=== PATIENT | female | born 1985 | race Caucasian/White ===

== ENCOUNTER 2018-04-01 11:20 | Inpatient (IN) | payer OTHER ==
[~2018-04-01] VITALS: Ht 167 cm; Wt 67.1 kg
[2018-04-01] MEDS ORDERED: OXYTOCIN 30 UNITS/LACT RINGERS 500 ML IV ONE ×2 (11:26→22:54)
[2018-04-01] MEDS ORDERED: RINGERS SOLUTION,LACTATED 1,000 ML IV PRN (11:26)
[2018-04-01] MEDS ORDERED: METOCLOPRAMIDE HCL 5 MG/ML 2 ML VIAL IVP PRN (11:30)
[2018-04-01] MEDS ORDERED: OXYGEN THERAPY IH SCH (11:30)
[2018-04-01] MEDS ORDERED: CITRIC ACID/SODIUM CITRATE 30 ML SOLUTION UDCUP PO PRN (11:30)
[2018-04-01] MEDS ORDERED: METHYLERGONOVINE MALEATE 0.2 MG/ML VIAL IM PRN (11:30)
[2018-04-01] MEDS ORDERED: LIDOCAINE/PF 1% 30 ML VIAL INJ PRN ×2 (11:30→23:00)
[2018-04-01 11:53] VITALS: BP 108/61
[2018-04-01] MEDS ORDERED: PNV1TABL54 PO (11:54)
[2018-04-01 12:58] LABS: BASOPHILS % (AUTO) 0.5 % (0.0-2.0); EOSINOPHILS % (AUTO) 0.7 % (1.0-6.0); HEMATOCRIT 33.1 % (36-46); HEMOGLOBIN 10.9 g/dL (12.0-16.0); MEAN CORPUSCULAR HEMOGLOBIN 26.5 pg (26.0-34.0); MEAN CORPUSCULAR HGB CONC 32.9 G/dL (31.0-37.0); MEAN CORPUSCULAR VOLUME 81 fL (80-100); MONOCYTES # (AUTO) 0.7 K/uL (0.1-1.0); MONOCYTES % (AUTO) 6.3 % (2.0-9.0); NEUTROPHILS # (AUTO) 8.1 K/uL (1.8-7.7); NEUTROPHILS % (AUTO) 74.5 % (40.0-70.0); PLATELET COUNT (AUTO) 180 K/uL (150-450); RED BLOOD CELL COUNT(AUTO) 4.11 MIL/uL (4.00-5.20); RED CELL DISTRIBUTION WIDTH 15.1 % (11.5-14.5)
[2018-04-01] MEDS ORDERED: ROPIVACAINE HCL/PF 0.2% 100 ML ED ONE (13:03)
[2018-04-01] MEDS ORDERED: LIDOCAINE/PF 2% 5 ML VIAL ONE (13:03)
[2018-04-01] MEDS: RINGERS SOLUTION,LACTATED 1,000 ML IV SCH ×2 (13:33→19:26)
[2018-04-01] MEDS ORDERED: OXYTOCIN 30 UNITS/LACT RINGERS 500 ML IV PRN (14:18)
[2018-04-01] MEDS ORDERED: ROPIVACAINE HCL/PF 0.2% 100 ML ED PRN (14:30)
[2018-04-01] MEDS ORDERED: NALBUPHINE HCL 10 MG/ML VIAL IVP PRN (14:30)
[2018-04-01] MEDS ORDERED: DiphenhydrAMINE HCL 50 MG/ML VIAL IVP PRN (14:30)
[2018-04-01] MEDS ORDERED: ONDANSETRON HCL 4 MG/2 ML VIAL IVP PRN (14:30)
[2018-04-01] MEDS ORDERED: AMPICILLIN SODIUM 2 GM/NS 100 ML IV ONE (15:00)
[2018-04-01] MEDS ORDERED: AMPICILLIN SODIUM 1 GM/NS 50 ML IV SCH (19:00)
[2018-04-01] MEDS ORDERED: GLYCERIN/WITCH HAZEL LEAF 40 PADS JAR TP PRN (23:00)
[2018-04-01] MEDS ORDERED: MAGNESIUM HYDROXIDE SUSPENSION 30 ML UDCUP PO PRN (23:00)
[2018-04-01] MEDS ORDERED: BENZOCAINE 20%/MENTHOL 56 GM SPRAY CANISTER TP PRN (23:00)
[2018-04-01] MEDS ORDERED: LANOLIN 7 GM OINTMENT TP PRN (23:00)
[2018-04-01] MEDS ORDERED: OxyCODONE HCL/ACETAMINOPHEN 5-325 MG TABLET PO PRN ×2 (23:00)
[2018-04-02] MEDS: IBUPROFEN 800 MG TABLET PO PRN ×2 (01:05→16:45)
[2018-04-02 06:05] LABS: BASOPHILS % (AUTO) 0.3 % (0.0-2.0); EOSINOPHILS % (AUTO) 0.2 % (1.0-6.0); HEMATOCRIT 29.1 % (36-46); HEMOGLOBIN 9.9 g/dL (12.0-16.0); LYMPHOCYTES # (AUTO) 2.3 K/uL (1.0-4.8); LYMPHOCYTES % (AUTO) 12.3 % (22.0-44.0); MEAN CORPUSCULAR HGB CONC 34.1 G/dL (31.0-37.0); MEAN CORPUSCULAR VOLUME 79 fL (80-100); MONOCYTES % (AUTO) 5.5 % (2.0-9.0); NEUTROPHILS # (AUTO) 15.1 K/uL (1.8-7.7); NEUTROPHILS % (AUTO) 81.7 % (40.0-70.0); PLATELET COUNT (AUTO)-OB 163 K/uL (150-450); RED BLOOD CELL COUNT(AUTO) 3.66 MIL/uL (4.00-5.20); RED CELL DISTRIBUTION WIDTH 15.1 % (11.5-14.5)
[2018-04-02] MEDS ORDERED: IBUP-2071 PO (19:33)
[2018-04-02] MEDS ORDERED: DSS100 PO (19:34)
[2018-04-02] MEDS ORDERED: FERR-89 PO (19:35)
== END 2018-04-02 22:50 | disposition home or self-care (01) | DRG 807 ==
LOC: 4S 11:20 → OBSVTOIN 11:31
PROVIDERS: ADMIT Obstetrics & Gynecology; ATTEND Obstetrics & Gynecology
PROC: 10E0XZZ Delivery of Products of Conception, External Approach (ICD-10-PCS; principal; 2018-04-01)
PROC: 0UQGXZZ Repair Vagina, External Approach (ICD-10-PCS; 2018-04-01)
PROC: 3E0R3BZ Introduction of Anesthetic Agent into Spinal Canal, Percutaneous Approach (ICD-10-PCS; 2018-04-01)
PROC: 00HU33Z Insertion of Infusion Device into Spinal Canal, Percutaneous Approach (ICD-10-PCS; 2018-04-01)
DX: O71.4 Obstetric high vaginal laceration alone (principal); Z37.0 Single live birth; Z3A.37 37 weeks gestation of pregnancy
CPT/HCPCS: 86850; 86900; 86901; J0290; J2590; J2795; J3490; J7120